=== PATIENT | female | born 1945 | race Caucasian/White ===

== ENCOUNTER → 2017-03-11 | Outpatient (CLI) | payer BC ==
[~2017-03-11] MED LIST: ASCA500 PO; B-COTAB18 PO; CHOL100027 PO; IBUP-1050 PO; LEVO75TA5 PO; LIOT5TAB PO; MULTTAB58 PO
== END | disposition home or self-care (01) ==
LOC: C.RDSM 10:14
PROVIDERS: ATTEND Physical Medicine & Rehabilitation Sports Medicine
DX: M25.512 Pain in left shoulder (principal)

== ENCOUNTER → 2017-04-18 | Outpatient (CLI) | payer BC ==
--- NOTE | 2017-04-18 12:06 | DIAGNOSTIC IMAGING REPORT ---
MRI OF THE LEFT SHOULDER CLINICAL HISTORY: Left shoulder pain. Clinical concern for adhesive capsulitis. COMPARISON STUDY: Radiographs of left shoulder dated 03/11/2017. TECHNIQUE: MRI of the left shoulder was performed utilizing various T1 and T2 weighted sequences in the axial, sagittal, coronal planes. IV contrast was not administered for this examination. Examination is degraded by motion artifact. FINDINGS: Rotator cuff: There is mild tendinopathy with a tiny partial undersurface tear of the supraspinatus seen on coronal image #5. The infraspinatus tendon is preserved. The teres minor and subscapularis tendons are intact. There is no subacromial or subdeltoid bursal fluid. The acromioclavicular joint is unremarkable. Biceps tendon: The long head of the biceps tendon is normal in signal intensity and located within the bicipital groove. The anchor is maintained. Labrum: Grossly intact. Shoulder joint: There is thickening of the inferior glenohumeral ligament and the inferior joint capsule, best seen on coronal image #8. There is trace joint effusion. The articular cartilage over the glenoid is well maintained. Mild arthritic change is present in the humeral head. There is no MRI evidence of fracture. Musculature and soft tissues: There is diffuse/generalized atrophy of the regional musculature. No intramuscular edema is seen. IMPRESSION: 1. There is significant thickening with increased signal involving the inferior glenohumeral ligament and the inferior joint capsule. This likely represents adhesive capsulitis as clinically suspected. 2. Trace joint effusion. 3. There is mild tendinopathy with minimal partial thickness undersurface tearing of the supraspinatus tendon. Electronically signed by: Jorge Downey M.D. 04/18/2017 12:05 PM Dictated Date/Time: 04/18/2017 11:58 AM
== END | disposition home or self-care (01) ==
LOC: C.MRI 10:40
PROVIDERS: ATTEND Physical Medicine & Rehabilitation Sports Medicine
DX: M25.512 Pain in left shoulder (principal); M75.02 Adhesive capsulitis of left shoulder

== ENCOUNTER → 2017-09-04 | Outpatient (CLI) | payer BC | END | disposition home or self-care (01) | LOC: C.LAB 10:43 | PROVIDERS: ATTEND Nutritionist | DX: R53.83 Other fatigue (principal) ==